=== PATIENT | male | born 1980 | race Hispanic/Latino ===

== ENCOUNTER 2023-06-30 15:51 | Emergency (ER) | payer MEDICAID ==
[~2023-06-30] VITALS: Ht 180.3 cm; Wt 97.1 kg
[2023-06-30 16:03] VITALS: BP 139/86; PULSE 86; RESP 18
[2023-06-30] MEDS: TETRACAINE HCL 0.5% 4 ML OPHTH SOLN OP STA (17:09)
[2023-06-30] MEDS: FLUORESCEIN SODIUM 1 STRIP STRIP OP STA (17:10)
[2023-06-30] MEDS ORDERED: ERYT1OIN7 OP (17:21)
== END 2023-06-30 17:47 | disposition home or self-care (01) ==
LOC: EDH 15:51
DX: H10.9 Unspecified conjunctivitis (principal)